=== PATIENT | male | born 1960 | race Caucasian/White ===

== ENCOUNTER → 2017-02-25 | Outpatient (REF) | payer MEDICARE | LOC: M LAB REF 12:44 | PROVIDERS: ATTEND Nurse Practitioner Adult Health | DX: Z20.828 Contact with and (suspected) exposure to other viral communicable diseases (principal) ==

== ENCOUNTER 2017-06-18 11:12 | Emergency (ER) | payer MEDICARE ==
[2017-06-18] MEDS: HYDROmorphone HCL 1 MG/ML SYRINGE (J1170) IM (12:04)
== END 2017-06-18 12:47 | disposition home or self-care (01) ==
LOC: M ED 11:12
DX: M19.011 Primary osteoarthritis, right shoulder (principal); I10 Essential (primary) hypertension; F17.210 Nicotine dependence, cigarettes, uncomplicated; Z79.899 Other long term (current) drug therapy
CPT/HCPCS: J1170

== ENCOUNTER → 2020-06-20 | Outpatient (REF) | payer MEDICARE ==
[~2020-06-20] MED LIST: CENTTAB PO; IBUP-1022 PO; LISI10TA4 PO; MORP1TAB22 PO
[2020-06-21 19:06] LABS: TESTOSTERONE FREE (DIRECT) 5.3 pg/mL (7.2-24.0)
== END ==
LOC: M LAB REF 11:29
PROVIDERS: ATTEND Family Medicine Addiction Medicine
DX: Z79.891 Long term (current) use of opiate analgesic (principal)

== ENCOUNTER 2021-12-17 15:06 | Emergency (ER) | payer MEDICARE ==
[~2021-12-17] VITALS: Ht 170.2 cm; Wt 97.2 kg
[2021-12-17 15:06] VITALS: BP 133/76
[~2021-12-17 15:06] MED LIST changes: +LISI10TA22 PO; -LISI10TA4 PO
[2021-12-17 18:01] LABS: BASO # 0.1 10^3/uL (0.0-0.2); BASO % 0.4 % (0.0-1.0); EOS % 0.2 % (0.0-3.0); HEMATOCRIT 48.6 % (42.0-52.0); HEMOGLOBIN 15.9 g/dl (13.5-17.5); LYMPH # 2.8 10^3/uL (1.5-5.0); LYMPH % 22.3 % (24.0-44.0); MEAN CORPUSCULAR HEMOGLOBIN 30.3 pg (27.0-33.0); MEAN CORPUSCULAR HGB CONC 32.7 g/dl (32.0-36.5); MEAN CORPUSCULAR VOLUME 92.7 fl (80.0-96.0); MONO # 0.9 10^3/uL (0.0-0.8); MONO % 7.6 % (2.0-8.0); NEUTROPHILS # 8.5 10^3/uL (1.5-8.5); PLATELET COUNT, AUTOMATED 238 10^3/uL (150-450); RED BLOOD COUNT 5.24 10^6/uL (4.30-6.10); WHITE BLOOD COUNT 12.3 10^3/uL (4.0-10.0)
[2021-12-17 18:28] LABS: CK-MB VALUE MASS 2.7 NG/ML (<3.6)
[2021-12-17 18:30] LABS: ALT/SGPT 22 U/L (12-78); BILIRUBIN,DIRECT 0.2 MG/DL (0.0-0.2); BILIRUBIN,TOTAL 0.5 MG/DL (0.2-1.0); BLOOD UREA NITROGEN 6 MG/DL (7-18); CALCIUM LEVEL 9.1 MG/DL (8.8-10.2); CARBON DIOXIDE LEVEL 29 MEQ/L (21-32); CHLORIDE LEVEL 102 MEQ/L (98-107); CREATININE FOR GFR 0.75 MG/DL (0.70-1.30); GLOMERULAR FILTRATION RATE > 60.0 (>49); GLUCOSE, FASTING 93 MG/DL (70-100); NT-PRO BNP 68 PG/ML (<125); POTASSIUM SERUM 3.9 MEQ/L (3.5-5.1); SODIUM LEVEL 137 MEQ/L (136-145); TOTAL PROTEIN 7.2 GM/DL (6.4-8.2)
[2021-12-17] MEDS ORDERED: FUROSEMIDE 40MG/4ML VIAL (J1940) IV ONE (18:55)
[2021-12-17] MEDS ORDERED: ISOVUE-370 76% 100ML VIAL As Ordered ONE (19:15)
[2021-12-17 19:19] LABS: APPEARANCE, URINE CLEAR (CLEAR); BACTERIA, URINE AUTO NEGATIVE (NEGATIVE); BILIRUBIN, URINE AUTO NEGATIVE (NEGATIVE); BLOOD, URINE BLOOD NEGATIVE (NEGATIVE); COLOR, URINE YELLOW (YELLOW); GLUCOSE, URINE (UA) AUTO NEGATIVE (NEGATIVE); KETONE, URINE AUTO NEGATIVE (NEGATIVE); LEUKOCYTE ESTERASE, URINE AUTO NEGATIVE (NEGATIVE); NITRITE, URINE AUTO NEGATIVE (NEGATIVE); PROTEIN, URINE AUTO NEGATIVE (NEGATIVE); RBC, URINE AUTO 0 /HPF (0-3); SPECIFIC GRAVITY URINE AUTO 1.006 (1.002-1.035); SQUAMOUS EPITHELIAL CELL UR AU 0 /HPF (0-6); UROBILINOGEN, URINE AUTO 0.2 mg/dL (0.0-2.0); WBC, URINE AUTO 0 /HPF (0-3)
[2021-12-17 19:22] LABS: INR 0.94
[2021-12-17 19:23] LABS: PARTIAL THROMBOPLASTIN TIME 34.2 SECONDS (25.9-37.0)
[2021-12-17] MEDS ORDERED: LASI20TA3 PO (20:47)
== END 2021-12-17 21:04 | disposition home or self-care (01) ==
LOC: M ED 15:06
DX: R60.0 Localized edema (principal); E04.1 Nontoxic single thyroid nodule; K76.0 Fatty (change of) liver, not elsewhere classified; N20.0 Calculus of kidney; I10 Essential (primary) hypertension; M54.9 Dorsalgia, unspecified; F17.200 Nicotine dependence, unspecified, uncomplicated; Z79.899 Other long term (current) drug therapy; Z79.891 Long term (current) use of opiate analgesic
CPT/HCPCS: 71045; 71275; 74177; 80048; 80076; 81001; 82550; 82553; 83880; 84484; 85025; 85610; 85730; 93005; 93970; 96374; 99284; J1940; Q9967

== ENCOUNTER → 2022-02-13 | Outpatient (CLI) | payer MEDICARE ==
[~2022-02-13] MED LIST changes: +LASI20TA3 PO
[2022-02-13 13:11] LABS: BLOOD UREA NITROGEN 9 MG/DL (7-18); CALCIUM LEVEL 9.5 MG/DL (8.8-10.2); CARBON DIOXIDE LEVEL 31 MEQ/L (21-32); CHLORIDE LEVEL 100 MEQ/L (98-107); CREATININE FOR GFR 0.67 MG/DL (0.70-1.30); GLOMERULAR FILTRATION RATE > 60.0 (>49); GLUCOSE, FASTING 78 MG/DL (70-100); POTASSIUM SERUM 4.5 MEQ/L (3.5-5.1); SODIUM LEVEL 135 MEQ/L (136-145)
== END ==
LOC: M LAB 11:35
PROVIDERS: ATTEND Physician Assistant
DX: Z76.89 Persons encountering health services in other specified circumstances (principal)

== ENCOUNTER → 2022-02-13 | Outpatient (CLI) | payer MEDICARE | LOC: M RAD 10:47 | PROVIDERS: ATTEND Family Medicine Addiction Medicine | DX: E04.1 Nontoxic single thyroid nodule (principal); K76.9 Liver disease, unspecified ==

== ENCOUNTER → 2022-02-17 | Outpatient (CLI) | payer MEDICARE ==
[~2022-02-17] MED LIST changes: +PROHANCE 279.3MG/ML 15ML VIAL As Ordered ONE; +PROHANCE 279.3MG/ML 5ML VIAL As Ordered ONE
== END ==
LOC: M RAD 15:01
PROVIDERS: ATTEND Family Medicine Addiction Medicine
DX: K76.9 Liver disease, unspecified (principal); N28.1 Cyst of kidney, acquired
CPT/HCPCS: 74183; A9576

== ENCOUNTER 2023-10-15 04:00 | Emergency (ER) | payer MEDICARE ==
[~2023-10-15 04:00] MED LIST changes: -PROHANCE 279.3MG/ML 15ML VIAL As Ordered ONE; -PROHANCE 279.3MG/ML 5ML VIAL As Ordered ONE
[2023-10-15 04:01] VITALS: BP 148/68; TEMP 97.3; O2SAT 99
[2023-10-15] MEDS ORDERED: LISI20TA33 PO (04:19)
[2023-10-15] MEDS ORDERED: [UNRECOGNIZED DRUG - CODE] PO (04:19)
[2023-10-15] MEDS ORDERED: MORP1TAB21 (09:37)
[2023-10-15] MEDS ORDERED: PARO5TAB (09:37)
[2023-10-15] MEDS ORDERED: CLONI1TA PO (10:54)
[2023-10-15] MEDS ORDERED: ONDA4TAB6 PO (10:54)
== END 2023-10-15 04:57 | disposition left against medical advice (07) ==
LOC: M ED 04:00
DX: Z53.21 Procedure and treatment not carried out due to patient leaving prior to being seen by health care provider (principal)

== ENCOUNTER 2023-10-15 09:18 | Emergency (ER) | payer MEDICARE ==
[~2023-10-15] VITALS: Ht 167.6 cm; Wt 84.2 kg
[~2023-10-15 09:18] MED LIST changes: +LISI20TA33 PO; +[UNRECOGNIZED DRUG - CODE] PO
[2023-10-15 09:30] VITALS: BP 149/71; TEMP 97.9; O2SAT 97
[2023-10-15] MEDS ORDERED: PARO5TAB (09:37)
[2023-10-15] MEDS ORDERED: MORP1TAB21 (09:37)
[2023-10-15] MEDS ORDERED: CLONI1TA PO (10:54)
[2023-10-15] MEDS ORDERED: ONDA4TAB6 PO (10:54)
[2023-10-15 11:13] VITALS: BP 149/71
[2023-10-15] MEDS: ONDANSETRON 4MG ORAL DISINTEGRATING TAB PO ONE (11:13)
[2023-10-15] MEDS: KETOROLAC 60MG 2ML VIAL IM ONE (11:13)
[2023-10-15] MEDS: cloNIDine 0.1MG TABLET PO ONE (11:13)
== END 2023-10-15 11:20 | disposition left against medical advice (07) ==
LOC: EDBD 09:18 → M ED 09:18
DX: R19.7 Diarrhea, unspecified (principal); I10 Essential (primary) hypertension; G89.4 Chronic pain syndrome; F17.210 Nicotine dependence, cigarettes, uncomplicated; Z79.899 Other long term (current) drug therapy; Z53.9 Procedure and treatment not carried out, unspecified reason
CPT/HCPCS: 96372; 99283; J1885

== ENCOUNTER → 2023-11-10 | Outpatient (CLI) | payer OTHER ==
[~2023-11-10] MED LIST changes: +CLONI1TA PO; +MORP1TAB21; +ONDA4TAB6 PO; +PARO5TAB
== END ==
LOC: M WHC 11:09
PROVIDERS: ATTEND Internal Medicine
DX: M81.0 Age-related osteoporosis without current pathological fracture (principal)